=== PATIENT | female | born 1960 | race Caucasian/White ===

== ENCOUNTER 2024-02-20 11:18 | Emergency (ER) | payer BC ==
[~2024-02-20] VITALS: Ht 165.1 cm; Wt 86.4 kg
[2024-02-20 11:53] VITALS: BP 149/77; PULSE 79; RESP 18; TEMP 96.4; O2SAT 97
== END 2024-02-20 15:27 | disposition home or self-care (01) ==
LOC: ER 11:19
DX: J22 Unspecified acute lower respiratory infection (principal); Z88.0 Allergy status to penicillin; Z88.2 Allergy status to sulfonamides; Z88.5 Allergy status to narcotic agent; Z88.7 Allergy status to serum and vaccine
CPT/HCPCS: 99282

== ENCOUNTER 2024-11-20 10:18 | Outpatient (CLI) | payer MEDICARE, BC ==
[2024-11-19 11:23] LABS: CREATININE 0.81 MG/DL (0.40-0.90); TOTAL CARBON DIOXIDE 26.6 MMOL/L (24-32); eGFR 71 ML/MIN
[~2024-11-20 10:18] MED LIST: iohexol 300mg/ml 100ml inj. ONE
--- NOTE | 2024-11-20 12:48 | RADIOLOGY REPORT ---
CLINICAL HISTORY: left sided abdominal lump TECHNIQUE: CT of the abdomen and pelvis was performed with IV contrast. This exam was performed according to our departmental dose optimization program. Up-to-date CT equipment and radiation dose reduction techniques are utilized as appropriate. CTDI 31 DLP 1522 COMPARISON: None FINDINGS: Abdomen/Pelvis: The pancreas, kidneys, right adrenal gland, liver, and bladder are unremarkable. The gallbladder and uterus are absent. The 2.3 cm indeterminate left adrenal nodule. A subcentimeter hypodense lesion in the spleen is too small to adequately characterize. The abdominal aorta is normal in course and caliber. There are mild atherosclerotic calcifications. There is no free intraperitoneal air or fluid. There is no enlarged abdominal or pelvic lymph node. There is no bowel wall thickening or dilatation. The appendix is normal. There is a small fat containing umbilical hernia. No definite mass lesion is seen within the left abdomen. Other: The imaged lower thorax demonstrates a 12 mm right lower lobe ground-glass nodule. No acute osseous abnormality is evident. IMPRESSION: No acute CT abnormality in the abdomen/pelvis. Indeterminate 2.3 cm left adrenal nodule. Adrenal MRI with and without IV contrast could provide more definitive diagnosis. This can also better evaluate small splenic lesion. 12 mm right lower lobe ground-glass nodule. [address] follow-up recommended. Hysterectomy. Cholecystectomy.
== END 2024-11-20 23:59 | disposition home or self-care (01) ==
LOC: RAD 10:18
PROVIDERS: ATTEND Surgery
DX: Z01.818 Encounter for other preprocedural examination (principal); M51.26 Other intervertebral disc displacement, lumbar region; K42.9 Umbilical hernia without obstruction or gangrene; I10 Essential (primary) hypertension; E11.8 Type 2 diabetes mellitus with unspecified complications; E27.8 Other specified disorders of adrenal gland; D73.89 Other diseases of spleen; I70.0 Atherosclerosis of aorta; R91.1 Solitary pulmonary nodule; Z90.49 Acquired absence of other specified parts of digestive tract; Z90.710 Acquired absence of both cervix and uterus
CPT/HCPCS: 36415; 74177; 80048; Q9967

== ENCOUNTER 2024-11-28 10:06 | Observation (INO) | payer MEDICARE, BC ==
[~2024-11-28] VITALS: Ht 165.1 cm; Wt 90.6 kg
--- NOTE | 2025-01-19 10:23 | ELECTROCARDIOGRAPH REPORT ---
[facility] Test Date: 2025-01-19 Test Time: 10:20:36 Pat Name: DANA LOVETT [id number] Room: Gender: F Lay Out Inspector: elisha : 1960 Requested By: MERRY BECKMAN Order Number: [id number] Reading MD: Dr. Gualberto Browne Measurements Intervals [place] Rate: 66 P: 30 MO: 179 QRS: 54 QRSD: 88 T: 7 QT: 404 QTc: 424 Interpretive Statements Sinus rhythm Non-specific ST-T wave changes Electronically Signed On 01-20-2025 13:22:[address] Gualberto Browne Please click the below link to view image of tracing.
[2025-01-19] MEDS ORDERED: ATOR-2 PO (10:30)
[2025-01-19] MEDS ORDERED: MIRA50TA PO (10:30)
[2025-01-19] MEDS ORDERED: PANT-47 PO (10:30)
[2025-01-19] MEDS ORDERED: LISI30TA4 PO (10:30)
[2025-01-19] MEDS ORDERED: IBUP-2697 PO (10:30)
[2025-01-19] MEDS ORDERED: SEMA1PEN3 SUBCUT (10:30)
[2025-01-19] MEDS ORDERED: ACET-2007 PO (10:30)
[2025-01-19 10:39] LABS: MEAN PLATELET VOLUME 7.8 FL (7.4-10.4); PRE OP HEMATOCRIT 36.6 % (35.0-45.0); PRE OP HEMOGLOBIN 12.2 g/dL (12.0-16.0); PRE OP PLATELET COUNT 306 X10'3 (140-440); PRE OP WHITE BLOOD COUNT 7.6 10'3 (4.8-10.8); RED CELL DISTRIBUTION WIDTH 13.8 % (11.5-14.5)
[2025-01-19 10:53] LABS: CREATININE 0.85 MG/DL (0.40-0.90); PRE OP ALT 19 U/L (30-65); PRE OP ANION GAP 7 (8-16); PRE OP AST 18 U/L (10-37); PRE OP BILIRUB, TOTAL 0.4 MG/DL (0.0-1.0); PRE OP GLUCOSE 105 MG/DL (70-104); PRE OP POTASSIUM 4.2 MMOL/L (3.4-5.1); PRE OP SODIUM 141 MMOL/L (135-145); TOTAL CARBON DIOXIDE 29.3 MMOL/L (24-32); eGFR 67 ML/MIN
[2025-01-27] MEDS ORDERED: METF-436 PO (18:31)
[2025-01-28] VITALS (18 sets, daily range): BP systolic 116–160; BP diastolic 48–79; PULSE 65–98; RESP 13–18; TEMP 97.2–99; O2SAT 93–100
[2025-01-28] MEDS: clindamycin-Cleocin 900mg/D5W 50 ML IV ONE (05:30)
[2025-01-28] MEDS: gentamicin inj 350 MG in normal saline 100ml IV soln 100 ML IV ONE (06:30)
[2025-01-28] MEDS: ringers solution, lacted 1,000 ML IV SCH ×2 (06:31→07:25)
[2025-01-28] MEDS ORDERED: BUPIVAcaine/PF 2.5mg/ml (0.25%) 10ml vial ONE ×2 (07:01→07:12)
[2025-01-28] MEDS ORDERED: LIDOcaine 1% (10mg/ml)w/preservative inj. 20ml MDV ONE (07:02)
[2025-01-28] MEDS ORDERED: BUPIVACAINE liposomal/PF 13.3 MG/ML 10mL vial IM ONE (07:13)
[2025-01-28] MEDS ORDERED: fentaNYL/PF 50MCG/1 ML 2ML syringe ONE (07:22)
[2025-01-28] MEDS ORDERED: midazolam 1 mg/ML 2ml injection ONE (07:22)
[2025-01-28] MEDS ORDERED: ondansetron/PF 4mg/2ml inj ONE (07:23)
[2025-01-28] MEDS ORDERED: acetaminophen 1,000mg/100ml IV 100 ML IV ONE (07:23)
[2025-01-28] MEDS ORDERED: rocuronium 10mg/ml inj IV ONE (07:23)
[2025-01-28] MEDS ORDERED: LIDOcaine 1%/PF 5ML 10 MG/ML VIAL ONE (07:23)
[2025-01-28] MEDS ORDERED: glycopyrrolate 0.2mg/ml inj ONE (07:23)
[2025-01-28] MEDS ORDERED: propofol inj 20 ML IV ONE (07:23)
[2025-01-28] MEDS ORDERED: HYDROmorphone/PF 0.2 MG/ML SYRINGE IV PRN (07:25)
[2025-01-28] MEDS ORDERED: labetalol 20mg/4ml (5mg/ml) syringe IV PRN (07:25)
[2025-01-28] MEDS ORDERED: hydrALAZINE 20mg/ml inj. IV PRN (07:25)
[2025-01-28] MEDS ORDERED: ondansetron/PF 4mg/2ml inj IV PRN (07:25)
[2025-01-28] MEDS ORDERED: fentaNYL/PF 50MCG/1 ML 2ML syringe IV PRN ×2 (07:25)
--- NOTE | 2025-01-28 07:45 | HISTORY AND PHYSICAL ---
History & Physical Providers to CC CC: MARGO BECKMAN ~ History of Present Illness Reason for Admit\Complaint: Left lumbar hernia History of Present Illness Patient was suspected traumatic left lumbar hernia Here today for elective repair She was seen in the office greater than 30 days ago but denies any change in her past medical history (please see previous history and physical exam for all pertinent details) She is scheduled for robotic assisted laparoscopic possible open mesh repair Allergies: Coded Allergies: Penicillins (Verified Allergy, Unknown, RASH/HIVES, 01/27/25) Sulfa (Sulfonamide Antibiotics) (Verified Allergy, Unknown, HIVES, 01/27/25) codeine (Verified Allergy, Unknown, HALLUCINATIONS, 01/27/25) morphine (Verified Allergy, Unknown, HIVES, 01/27/25) tetanus toxoid, adsorbed (Verified Adverse Reaction, Unknown, ARM SWELLING, 02/20/24) Home Medications Home Medications Active Reported Metformin Hcl 500 Mg Tablet 1 Tab PO Q12H 30 Days Ozempic (Semaglutide) 1 Mg/0.75 Ml (4 Mg/3 Ml) Pen.injctr 0.5 Mg SUBCUT Q7D PT TAKES ON SATURDAYS PROTONIX tablet (Pantoprazole Sodium) 40 Mg Tablet.dr 1 Tab PO BID Acetaminophen Extra Strength (Acetaminophen) 500 Mg Tablet 1-2 Tab PO QPM PRN Ibuprofen 200 Mg Tablet 3 Tab PO QPM Myrbetriq (Mirabegron) 50 Mg Tab.er.24h 1 Tab PO HS Atorvastatin Calcium 80 Mg Tablet 1 Tab PO HS Lisinopril 30 Mg Tablet 1 Tab PO HS ROS ROS Reviewed and negative with the exception of symptomatic left lumbar hernia Exam Vitals: Vital Signs Date Time Temp Pulse Resp B/P (MAP) Pulse Ox O2 Delivery O2 Flow Rate FiO2 01/28/25 06:00 67 16 99 01/28/25 06:00 Room Air General: 64-year-old female in no acute distress Chest: Lungs clear to auscultation bilaterally Cardiovascular: Regular rate and rhythm without murmurs Abdomen: Soft and nondistended On the left flank in the posterior axillary line just below the costal margin is a palpable and partially reducible mass with the associated cough impulse. The site is marked with the indelible ink. Problems: (1) Lumbar hernia Assessment & Plan: The risks, benefits, and alternatives to a robotic assisted, laparoscopic possible open left lumbar hernia repair with mesh were discussed with the patient. Risks include, but are not limited to, bleeding, infection, injury to intra-abdominal structures, hernia recurrence and chronic postoperative pain. Patient verbalized understanding and wishes to proceed with surgery. We will do so today as scheduled MERRY BECKMAN MD Jan 28, 2025 07:45
[2025-01-28] MEDS ORDERED: dexamethasone sod phosphate 4mg/ml inj. ONE (08:06)
[2025-01-28] MEDS ORDERED: PCA WASTE DOCUMENTATION 1 MG ML MC SCH (10:05)
[2025-01-28] MEDS: HYDROmorphone/PF 0.2 MG/ML SYRINGE IV PRN (10:24)
[2025-01-28] MEDS: oxyCODONE/APAP 5-325mg tablet PO PRN (11:15)
[2025-01-28] MEDS: potassium CL 20mEq in D5-1/2NS 1,000 ML IV SCH (12:49)
[2025-01-28] MEDS: ondansetron/PF 4mg/2ml inj IV PRN (17:32)
--- NOTE | 2025-01-28 17:40 | OPERATIVE REPORT ---
Operative Report Providers to CC: CB BECKMAN MD ~ Date of Procedure: Jan 28, 2025 Pre-Operative Diagnosis: Left lumbar hernia Post-Operative Diagnosis 9 x 7 cm left lumbar hernia Procedure Performed Robotic assisted, laparoscopic repair of chronic left lumbar hernia with mesh (9 x 7 cm); transabdominal preperitoneal approach Surgeon: Cb Beckman MD FACS Consultant Intern None Anesthesiologist: Galindo Hameed Type of Anesthesia: General Findings: Chronic left lumbar hernia was identified with a 9 x 7 cm fascial defect in the left lateral abdominal wall. The descending colon was partially herniated through the defect without evidence of ischemia or strangulation. The surrounding tissue demonstrated chronic attenuation and scarring consistent with prior injury. After suture approximation, a residual 2 x 2 cm portion of the defect remained superiorly between the floating rib and rib above, precluding further closure. No intra-abdominal pathology was noted. Wound class I Complications None Prosthetics\Implants used: 2 times 10 x 15 cm ProGrip mesh for a total of 30 x 20 cm repair Estimated Blood Loss: Minimal Specimen Removed: None Description of Procedure: Patient was brought to the operating room and identified by the nursing staff and the attending physician. Patient was placed supine and general anesthesia was induced. Patient was then moved in the right lateral decubitus position with the left flank up. After induction of general anesthesia and sterile preparation, pneumo peritoneum was established using Veress needle in the left upper quadrant. Robotic trocars were placed under direct visualization and the robot was docked. Diagnostic laparoscopy confirmed the location of left lumbar hernia containing descending colon. The herniated contents easily reduced by rotating the bed slightly to the right and no herniated material remained. A peritoneal flap was developed by creating a peritoneal rent about six or 7 cm towards the midline away from the fascial defect. Circumferential preperitoneal plane was developed surrounding the defect. Peritoneal plane continued down to the left anterior superior iliac spine and well above the costal margin as well as posteriorly beyond the psoas muscle allowing the kidney to fall away from the left flank musculature. At least 6-8 cm of circumferential dissection was developed. Fascial defect measured 9 x 7 cm. The superior most portion abutted a floating rib as well as the costal margin. Using a 180 day slow absorbing V lock suture, a running closure was performed reapproximate the fascial edges as much as possible. The superior portion of the defect, lying between a free floating rib and the rib above, could not be completely closed; only a small residual 2 x 2 cm gap remained. Two pieces of 15 x 10 cm ProGrip mesh were passed into the abdomen with necessary suture. After measuring the area surrounding the repaired defect, it appeared that there was adequate space to accommodate a proximally 30 x 20 cm of mesh. The mesh were overlapped and joined using interrupted Ethibond sutures. The composite mesh construct was secured in position over the repair, ensuring smooth lay without folds or tension. The the peritoneal flap was then closed over the mesh using a running absorbable V lock suture, thereby completely reestablishing the peritoneal layer and isolating the mesh from intra-abdominal contents. Hemostasis was excellent. Instruments were removed and the robot was undocked from the patient. 12 mm port site was closed percutaneously with 0 Vicryl suture under laparoscopic visualization. Pneumoperitoneum was released and remaining ports removed. Skin was closed at all sites with 4-0 Monocryl sutures in a subcuticular fashion. Sterile dressings were applied. Patient was awakened and taken to the postanesthesia care unit in stable condition. Counts repoted as correct: Yes CB BECKMAN MD Jan 28, 2025 17:40
[2025-01-28] MEDS: pantoprazole 40mg Tablet.DR PO SCH (20:17)
[2025-01-28] MEDS: heparin, porcine 5000 units/ml vial SQ SCH (20:19)
[2025-01-29 02:00] VITALS: BP 157/72; PULSE 79; RESP 18; TEMP 98; O2SAT 96
[2025-01-29 06:48] VITALS: BP 142/56; PULSE 82; RESP 16; TEMP 98.1; O2SAT 96
[2025-01-29 08:56] VITALS: RESP 16; O2SAT 96
[2025-01-29 10:00] VITALS: BP 150/68; PULSE 76; RESP 15; TEMP 97.8; O2SAT 97
[2025-01-29] MEDS ORDERED: PER5325T PO (10:30)
[2025-01-29 10:35] VITALS: BP 150/68; PULSE 76; RESP 15; TEMP 97.8; O2SAT 97
--- NOTE | 2025-01-29 10:36 | DISCHARGE SUMMARY ---
Discharge Summary Providers to CC CC: MERRY BECKMAN MD ~ Discharge Summary Admission Diagnosis: Left lumbar hernia Hospital Course DATE OF ADMISSION: 01-28-25 DATE OF DISCHARGE: 01-29-25 Discharge Diagnosis\Comment: Left lumbar hernia 9 cm Operations\Procedures: Robotic assisted laparoscopic left lumbar hernia repair with mesh Consultants: Chandana Complications: None Condition on DC: Stable New Medications: Oxycodone Hcl/Acetaminophen 5/325 MG* (Percocet 5/325 MG*) 5 Mg/325 Mg Tablet 1 TAB PO Q4H PRN for moderate or severe pain 4-10 for 5 Days, #30 TAB Continued Medications: Acetaminophen (Acetaminophen Extra Strength) 500 Mg Tablet 1-2 TAB PO QPM PRN for pain, TAB Atorvastatin Calcium (Atorvastatin Calcium) 80 Mg Tablet 1 TAB PO HS, TAB 0 Refills Ibuprofen (Ibuprofen) 200 Mg Tablet 3 TAB PO QPM for pain or fever, TAB 0 Refills Lisinopril (Lisinopril) 30 Mg Tablet 1 TAB PO HS, TAB 0 Refills Metformin Hcl (Metformin Hcl) 500 Mg Tablet 1 TAB PO Q12H for 30 Days, #60 TAB 0 Refills Mirabegron (Myrbetriq) 50 Mg Tab.er.24h 1 TAB PO HS, TAB 0 Refills Pantoprazole Sodium (PROTONIX tablet) 40 Mg Tablet.dr 1 TAB PO BID, TAB 0 Refills Semaglutide (Ozempic) 1 Mg/0.75 Ml (4 Mg/3 Ml) Pen.injctr 0.5 MG SUBCUT Q7D, ML 0 Refills PT TAKES ON SATURDAYS Discharge Summary: Admitted for overnight observation Ready for d/c in AM *Problems/Diagnosis: (1) Lumbar hernia Total Time Spent on D/C: Up to 30 Minutes Counseling Services Smoking & Tobacco Cessation: N/A MERRY BECKMAN MD Jan 29, 2025 10:36
[2025-01-29 10:48] VITALS: BP 150/68; PULSE 76; RESP 15; TEMP 97.8; O2SAT 97
[2025-01-29] MEDS: FLU VACC TS2025-26(6MOS UP)/PF (FLULAVAL) 45 MCG/0.5 ML SYRINGE IMVAC ONE (11:08)
== END 2025-01-29 11:50 | disposition home or self-care (01) ==
LOC: UNDOADMOB 10:06 → SUR 3N 10:06 → PAS IN 01-28 05:24 → UNDOADMIN 01-28 05:24 → EDSTATUS 01-28 07:30 → SUR 3N 01-28 10:06 → PAS IN 01-28 11:06 → UNDODISOB 01-29 11:50 → UNDODISIN 01-29 11:50
PROVIDERS: ADMIT Surgery; ATTEND Surgery
DX: K45.8 Other specified abdominal hernia without obstruction or gangrene (principal); I10 Essential (primary) hypertension; E11.9 Type 2 diabetes mellitus without complications; K21.9 Gastro-esophageal reflux disease without esophagitis; E78.5 Hyperlipidemia, unspecified; Z79.84 Long term (current) use of oral hypoglycemic drugs; Z88.0 Allergy status to penicillin; Z88.2 Allergy status to sulfonamides; Z88.5 Allergy status to narcotic agent; Z79.899 Other long term (current) drug therapy; Z98.890 Other specified postprocedural states
CPT/HCPCS: 49659; 80053; 82948; 93005; 96365; 96372; 96375; A4215; A4618; C1781; G0378; J0666; J1171; J2710; J3480; J3490; J7120; 36415; 85025; 87081; G0008; J0131; J1100; J1580; J1644; J2250; J2405; J2704; J3010

== ENCOUNTER 2025-01-31 09:39 | Emergency (ER) | payer MEDICARE, BC ==
[~2025-01-31] VITALS: Ht 165.1 cm; Wt 88.0 kg
[~2025-01-31 09:39] MED LIST changes: +ACET-2007 PO; +ATOR-2 PO; +IBUP-2697 PO; +LISI30TA4 PO; +METF-436 PO; +MIRA50TA PO; +PANT-47 PO; +PER5325T PO; +SEMA1PEN3 SUBCUT; -iohexol 300mg/ml 100ml inj. ONE
[2025-01-31 09:44] VITALS: TEMP 98.5
--- NOTE | 2025-01-31 10:27 | Physician Documentation ---
History of Present Illness Chief Complaint: Post-operative complication Stated Complaint: POST OP COMPLICATIONS Time Seen by MD: 10:27 Mode of Arrival: Ambulatory HPI 64-year-old female, recent hernia surgery, presenting with abdominal pain She tells me that she had a recent lumbar hernia surgery with Dr. Ellington. No complications. She has an opiate pain medication. Over the past couple of days she has been having pain in her left lower abdomen that does radiate through to her back. She contacted her surgeon and he was concerned that she may have a bowel obstruction. She has not had a bowel movement since before the surgery. She is not passing gas. No vomiting. No fevers. No significant abdominal pain currently. Medication Reconciliation Allergies: Coded Allergies: Penicillins (Verified Allergy, Unknown, RASH/HIVES, 01/27/25) Sulfa (Sulfonamide Antibiotics) (Verified Allergy, Unknown, HIVES, 01/27/25) codeine (Verified Allergy, Unknown, HALLUCINATIONS, 01/27/25) morphine (Verified Allergy, Unknown, HIVES, 01/27/25) tetanus toxoid, adsorbed (Verified Adverse Reaction, Unknown, ARM SWELLING, 02/20/24) Scheduled Atorvastatin Calcium (Atorvastatin Calcium), 1 TAB PO HS, (Reported) Ibuprofen (Ibuprofen), 3 TAB PO QPM, (Reported) Lisinopril (Lisinopril), 1 TAB PO HS, (Reported) Metformin Hcl (Metformin Hcl), 1 TAB PO Q12H, (Reported) Mirabegron (Myrbetriq), 1 TAB PO HS, (Reported) Pantoprazole Sodium (PROTONIX tablet), 1 TAB PO BID, (Reported) Semaglutide (Ozempic), 0.5 MG SUBCUT Q7D, (Reported) Scheduled PRN Acetaminophen (Acetaminophen Extra Strength), 1-2 TAB PO QPM PRN for pain, (Reported) Oxycodone Hcl/Acetaminophen 5/325 MG* (Percocet 5/325 MG*), 1 TAB PO Q4H PRN for moderate or severe pain 4-10 Past Medical History Patient History: FH: diabetes mellitus Sister FH: hypertension MOTHER Review of Systems Constitutional: Denies: fever Gastrointestinal: Reports: abdominal pain, constipated; Denies: vomiting, di arrhea Physical Exam Vital Signs: Temperature: 98.5, Source: Oral, Heart Rate: 76, Respiratory Rate: 15, BP: 155/86, Pulse Oximetry: 96, Weight: 88.000 Oxygen Flow Rate: 0 Physical Exam General: This is a pleasant and nontoxic appearing middle-aged woman, partner at bedside HEENT: Atraumatic, oropharynx is dry Heart: Regular rate and rhythm, normal-appearing peripheral perfusion Lungs: normal work of breathing, normal oxygen saturation on room air Abdomen: Soft, nondistended, I am unable to induce tenderness or reproduce her pain with deep palpation in all quadrants including in the left lower quadrant. She has multiple well-healing surgical incision sites over the anterior abdominal wall without surrounding erythema or purulent drainage Neuro: Alert and oriented Psychiatric: Calm and cooperative with exam Progress Results/Orders Results/Orders Orders - KATHERIN OCONNOR MD Urinalysis, Cult If Indicated (01/31/25 09:50) Hcg, Ur Ql (01/31/25 09:50) Cbc/Diff (01/31/25 09:50) BMP (01/31/25 09:50) Lipase (01/31/25 09:50) CMP (01/31/25 09:50) Vital Signs 01/31/25 01/31/25 01/31/25 09:44 10:12 10:14 Temp 98.5 Pulse 87 76 Resp 16 16 15 B/P (MAP) 157/79 155/86 (109) Pulse Ox 97 96 O2 Flow Rate 0 Laboratory Tests Test 01/31/25 10:05 CBC Comment Chemistry Comments EKG/XRAY/CT/US/VASC/MRI CT : Impression I personally interpreted the CT scan, and this shows no bowel obstruction or oth er inflammatory process Consults/PCP Consults/PCP : Additional Comment Consult: I did inform her surgeon, Dr. Ellington about the findings of the CT scan. Medical Decision Making Additional information obtaine: old records Findings Reviewed previous hospitalization and surgery records Differential Dx:Considerations: Bowel obstruction, Constipation Additional Comments The patient presents with lower abdominal pain after recent abdominal surgery. On exam she does not have significant tenderness or peritoneal findings. Her surgical scars appear to be well healing. CT scan does not show a bowel obstruction or other dangerous findings. I suspect this is opiate induced constipation. She was given a dose of Relistor and milk of magnesia. She will be discharged with a bowel regimen and surgery clinic follow up. Departure Time of Disposition: 13:07 Disposition: 01 HOME / SELF CARE / HOMELESS Impression: Primary Impression: Constipation due to opioid therapy Condition: Stable Discharge Instructions: Constipation, Adult Referrals: NO PRIMARY CARE PROVIDER (PCP) Education Educated: Patient, Family Educated regarding: diagnosis, treatment, need for follow up Signature Scribe Signature: nick Attestation: KATHERIN Anthony MD Jan 31, 2025 10:27
[2025-01-31 10:28] LABS: MEAN PLATELET VOLUME 8.3 FL (7.4-10.4); RED CELL DISTRIBUTION WIDTH 13.7 % (11.5-14.5)
[2025-01-31] MEDS ORDERED: iohexol 300mg/ml 100ml inj. ONE (11:36)
[2025-01-31 12:16] LABS: TOTAL CARBON DIOXIDE 26.2 MMOL/L (24-32)
[2025-01-31 12:17] LABS: CREATININE 0.78 MG/DL (0.40-0.90); eCRCL 65 ML/MIN; eGFR 74 ML/MIN
--- NOTE | 2025-01-31 12:19 | RADIOLOGY REPORT ---
EXAM: CT CT ABDOMEN PELVIS W/ IV CONTRAST HISTORY: Recent hernia surgery, abdominal pain, constipated TECHNIQUE: Volumetric multidetector CT images of the abdomen and pelvis were obtained after the administration of intravenous contrast. All CT scans at this facility use dose modulation, iterative reconstruction, and/or weight based dosing when appropriate to reduce radiation dose to as low as reasonably achievable. COMPARISON: CT CT ABDOMEN PELVIS W/ IV CONTRAST on DOS: 11/20/24 FINDINGS: [LOWER CHEST]: Atelectasis in the left lung base. [LIVER]: Normal hepatic size without suspicious focal lesion. [GALLBLADDER AND BILIARY TREE]: No cholelithiasis. [SPLEEN]: Unremarkable. [PANCREAS]: Unremarkable. [ADRENAL GLANDS]: Left adrenal gland nodule measuring 2.3 cm. [KIDNEYS]: No hydronephrosis. No nephroureterolithiasis. No suspicious focal lesion. [BLADDER]: Unremarkable for the degree distention. [REPRODUCTIVE ORGANS]: Unremarkable. [BOWEL/MESENTERY]: Scattered intraperitoneal free air not unexpected for the recent surgery. At least moderate stool burden correlate for constipation. Stomach is normal. No CT evidence of bowel obstruction. [ASCITES]: Absent [LYMPHADENOPATHY]: No pathologically enlarged lymph nodes by CT size criteria [VASCULATURE]: No aneurysmal dilatation. [ABDOMINAL WALL]: Left posterolateral presumed lumbar type hernia, 1.7 cm width, decreased from prior examination with residual fluid. Overall postsurgical changes related to recent lumbar hernia repair. [MUSCULOSKELETAL]: No acute fracture or aggressive focal osseous lesion. Multifocal degenerative change of the visualized spine. IMPRESSION: 1. Postsurgical changes related to recent lumbar hernia repair with residual fluid in the left posterolateral lumbar hernia sac. 2. At least moderate stool burden. correlate for constipation.
[2025-01-31] MEDS: magnesium hydroxide 30ml (MOM) UD suspension PO ONE (13:20)
[2025-01-31] MEDS: methylnaltrexone br 12mg/0.6ml inj***SubQ only SQ ONE (13:21)
[2025-01-31 13:31] VITALS: BP 147/87; PULSE 84; RESP 15; O2SAT 97
== END 2025-01-31 13:33 | disposition home or self-care (01) ==
LOC: ER 09:40
DX: K59.03 Drug induced constipation (principal); T40.2X5A Adverse effect of other opioids, initial encounter; Z88.0 Allergy status to penicillin; Z88.2 Allergy status to sulfonamides; Z88.5 Allergy status to narcotic agent; Z88.7 Allergy status to serum and vaccine; Z79.84 Long term (current) use of oral hypoglycemic drugs; Z79.899 Other long term (current) drug therapy; Y92.89 Other specified places as the place of occurrence of the external cause
CPT/HCPCS: 36415; 74177; 80053; 83690; 85025; 96372; 99285; J2212; Q9967